=== PATIENT | female | born 1955 | race Two or more races ===

== ENCOUNTER 2022-08-05 10:01 | Emergency (ER) | payer OTHER ==
[2022-08-05 10:16] VITALS: BMI 26.9
[2022-08-05 11:00] LABS: ALBUMIN 4.2 g/dl (3.4-5.0); BILIRUBIN,TOTAL 0.8 mg/dl (0.2-1); CREATININE 0.7 mg/dl (0.55-1.3); TOT PROT 6.8 g/dl (6.4-8.2)
[2022-08-05 11:17] VITALS: RESP 14; TEMP 98.2
[2022-08-05 12:10] LABS: HEMATOCRIT 34.5 % (32.4-45.2); HEMOGLOBIN 11.8 GM/dL (10.7-15.3); MCH 30.1 pg (25.7-33.7); MCHC 34.3 g/dl (32.0-36.0); MEAN CELL VOLUME 87.8 fl (80-96); MEAN PLT VOLUME 10.5 fl (7.5-11.1); PLATELET COUNT 181 10^3/uL (134-434); RBC 3.93 M/mm3 (3.60-5.2); RDW 13.5 % (11.6-15.6); WHITE BLOOD COUNT 4.7 K/mm3 (4.0-10.0)
[2022-08-05 12:46] VITALS: PULSE 58
[2022-08-05 13:13] VITALS: BP 125/75
== END 2022-08-05 13:25 | disposition home or self-care (01) ==
LOC: FER 10:01 → SUPCPDRO 10:01 → FER 13:25
DX: R00.2 Palpitations (principal)
CPT/HCPCS: 36415; 71045-TC-FY; 80053; 81003; 84443; 84484; 85027; 87086; 93005; 99285-25